=== PATIENT | female | born 1950 | race Caucasian/White ===

== ENCOUNTER → 2019-11-12 | Outpatient (CLI) | payer MEDICARE ==
[~2019-11-12] MED LIST: ALBU90OI INH; ASPI325EC PO; BUPR150T2 PO; CLON.2 PO; FLUSAL2505 IH
[2019-11-13 02:18] LABS: Stool Occult Bld Immuno 1 Negative (NEGATIVE)
== END ==
LOC: LAB 14:34 → LAB SHORT 14:34
PROVIDERS: Nurse Practitioner Family
DX: Z12.11 Encounter for screening for malignant neoplasm of colon (principal)
CPT/HCPCS: G0328

== ENCOUNTER → 2020-12-07 | Outpatient (CLI) | payer MEDICARE ==
[2020-12-08 10:51] LABS: Stool Occult Bld Immuno 1 Negative (NEGATIVE)
== END | disposition home or self-care (01) ==
LOC: LAB SHORT 11:00 → LAB 11:00
PROVIDERS: Nurse Practitioner Family
DX: Z12.11 Encounter for screening for malignant neoplasm of colon (principal)
CPT/HCPCS: G0328

== ENCOUNTER → 2021-06-03 | Outpatient (CLI) | payer MEDICARE ==
[2021-06-03 13:20] LABS: Protein, Urine Quantitative 5.5 mg/dL (0.0-11.9); Sodium, Urine 64 mmol/L (20-110)
[2021-06-03 15:22] LABS: Microalbumin, Urine Quant. <5.000 mg/L (0.000-20.000)
== END | disposition home or self-care (01) ==
LOC: LAB SHORT 09:00 → LAB FUT 06-01 12:20
PROVIDERS: Internal Medicine Nephrology
DX: N18.30 Chronic kidney disease, stage 3 unspecified (principal); D63.1 Anemia in chronic kidney disease; D50.9 Iron deficiency anemia, unspecified; N25.81 Secondary hyperparathyroidism of renal origin; E55.9 Vitamin D deficiency, unspecified; E78.00 Pure hypercholesterolemia, unspecified; D51.8 Other vitamin B12 deficiency anemias; D52.8 Other folate deficiency anemias; R76.9 Abnormal immunological finding in serum, unspecified; R94.5 Abnormal results of liver function studies; R94.6 Abnormal results of thyroid function studies
CPT/HCPCS: 82043; 82570; 84156; 84300

== ENCOUNTER 2022-01-18 10:03 | Emergency (ER) | payer MEDICARE ==
[~2022-01-18] VITALS: Ht 162.6 cm; Wt 79.4 kg
[2022-01-18] MEDS ORDERED: GABA300 PO (14:36)
[2022-01-18] MEDS ORDERED: IBUP800 PO (14:36)
[2022-01-18] MEDS ORDERED: Robaxin750 MG PO (14:36)
[2022-01-18] MEDS ORDERED: PRED20 PO (14:36)
[2022-01-19] MEDS ORDERED: GABA300 PO (09:20)
[2022-01-19] MEDS ORDERED: CYCL10 PO (09:47)
== END 2022-01-18 14:47 | disposition home or self-care (01) ==
LOC: ER 10:03
DX: M54.41 Lumbago with sciatica, right side (principal); I10 Essential (primary) hypertension; J45.909 Unspecified asthma, uncomplicated; Z79.82 Long term (current) use of aspirin; Z79.899 Other long term (current) drug therapy
CPT/HCPCS: 72100; 73502; 94640; 94664; A9270; J1885; J7512

== ENCOUNTER 2022-01-27 16:12 | Inpatient (IN) | payer MEDICARE ==
[~2022-01-27] VITALS: Ht 157.5 cm; Wt 82.0 kg
[~2022-01-27 16:12] MED LIST changes: +CYCL10 PO; +GABA300 PO; +IBUP800 PO; +PRED20 PO; +Robaxin750 MG PO
[2022-01-27] MEDS ORDERED: LISI20 PO (16:36)
[2022-01-27 16:49] LABS: BASOPHILS ABSOLUTE AUTO 0.03 K/mm3 (0.00-0.23); BASOPHILS PERCENT AUTO 0 % (0-2); EOSINOPHILS ABSOLUTE AUTO 0.02 K/mm3 (0.00-0.68); EOSINOPHILS PERCENT AUTO 0 % (0-6); Hematocrit 40.1 % (33.0-51.0); IMMATURE GRAN ABSOLUTE AUTO 0.15 K/mm3 (0.00-0.10); IMMATURE GRAN PERCENT AUTO 1 % (0-1); LYMPHOCYTES ABSOLUTE AUTO 1.34 K/mm3 (0.84-5.20); LYMPHOCYTES PERCENT AUTO 8 % (21-46); MONOCYTES PERCENT AUTO 8 % (4-13); Mean Corpuscular HGB 24.8 pg (26.0-34.0); Mean Corpuscular HGB Conc 32.4 g/dL (31.5-36.5); Mean Corpuscular Volume 76 fL (80-100); Mean Platelet Volume 8.9 fL (9.1-12.4); NEUTROPHILS ABSOLUTE AUTO 13.73 K/mm3 (1.96-9.15); NEUTROPHILS PERCENT AUTO 82 % (41-73); Platelet Count 338 K/mm3 (150-400); RDW Coefficient Variation 15.8 % (11.7-14.2); RDW Standard Deviation 42.2 fL (35.1-46.3); Red Blood Cell Count 5.25 M/mm3 (3.80-5.20); White Blood Cell Count 16.67 K/mm3 (4.00-11.30)
[2022-01-27 17:01] LABS: Source, Urine Clean Catch
[2022-01-27 17:17] LABS: Appearance, Urine Clear (Clear); Bilirubin, Urine Neg (Neg); Blood, Urine 1+ (Neg); Color, Urine Yellow (P-Yellow); Glucose Qualitative, Urine Neg (Neg); Ketones, Urine 1+ (Neg); Leukocyte Esterase, Urine Neg (Neg); Nitrite, Urine Neg (Neg); Protein, Urine 1+ (Neg); Specific Gravity, Urine 1.015 (1.003-1.022); Urobilinogen, Urine 1+ (Normal)
[2022-01-27 17:20] LABS: Albumin, Blood 3.4 g/dL (3.4-5.0); Albumin/Globulin Ratio 0.7 (0.8-1.8); Bilirubin, Total 0.7 mg/dL (0.1-1.0); Bun/Creatinine Ratio 34.6 (12.0-20.0); Calcium, Blood 9.4 mg/dL (8.5-10.1); Creatinine, Blood 1.91 mg/dL (0.40-1.00); Globulin, Blood 4.7 g/dL (2.2-4.0); Potassium, Blood 4.2 mmol/L (3.5-5.5); Total Protein, Blood 8.1 g/dL (6.4-8.2)
[2022-01-27 17:29] LABS: Bacteria Few /hpf; Hyaline Casts 0-2 /lpf (0-2); Squamous Epithelial Cells Few /hpf (Few)
[2022-01-27 19:50] LABS: Influenza A, PCR NEGATIVE (NEGATIVE); Influenza B, PCR NEGATIVE (NEGATIVE); Resp Syncytial Virus, PCR NEGATIVE (NEGATIVE); SARS-Cov-2 (COVID-19) PCR, MMC NEGATIVE (NEGATIVE)
[2022-01-28 05:28] LABS: U Amphetamine Screen Not Detected; U Barbituate Screen Not Detected; U Benzodiazapine Screen Not Detected; U Buprenorphine Screen Not Detected; U Cannabinoids Screen Not Detected; U Cocaine Screen Not Detected; U Methadone Screen Not Detected; U Methamphetamine Screen Not Detected; U Opiates Screen Not Detected; U Oxycodone Screen Not Detected; U Phencyclidine Screen Not Detected; U Propoxyphene Screen Not Detected
[2022-01-28 06:05] LABS: BASOPHILS ABSOLUTE AUTO 0.02 K/mm3 (0.00-0.23); BASOPHILS PERCENT AUTO 0 % (0-2); EOSINOPHILS ABSOLUTE AUTO 0.02 K/mm3 (0.00-0.68); EOSINOPHILS PERCENT AUTO 0 % (0-6); Hemoglobin 12.1 g/dL (11.5-16.0); IMMATURE GRAN PERCENT AUTO 1 % (0-1); LYMPHOCYTES ABSOLUTE AUTO 1.03 K/mm3 (0.84-5.20); LYMPHOCYTES PERCENT AUTO 7 % (21-46); MONOCYTES ABSOLUTE AUTO 1.06 K/mm3 (0.16-1.47); MONOCYTES PERCENT AUTO 8 % (4-13); Mean Corpuscular HGB 25.2 pg (26.0-34.0); Mean Corpuscular HGB Conc 32.7 g/dL (31.5-36.5); Mean Corpuscular Volume 77 fL (80-100); Mean Platelet Volume 9.3 fL (9.1-12.4); NEUTROPHILS ABSOLUTE AUTO 11.88 K/mm3 (1.96-9.15); NEUTROPHILS PERCENT AUTO 84 % (41-73); Platelet Count 310 K/mm3 (150-400); RDW Coefficient Variation 15.8 % (11.7-14.2); RDW Standard Deviation 42.4 fL (35.1-46.3); Red Blood Cell Count 4.81 M/mm3 (3.80-5.20); White Blood Cell Count 14.11 K/mm3 (4.00-11.30)
[2022-01-28 06:20] LABS: Albumin, Blood 3.1 g/dL (3.4-5.0); Albumin/Globulin Ratio 0.7 (0.8-1.8); Bilirubin, Total 0.7 mg/dL (0.1-1.0); Bun/Creatinine Ratio 44.5 (12.0-20.0); Creatinine, Blood 0.99 mg/dL (0.40-1.00); Globulin, Blood 4.7 g/dL (2.2-4.0); Potassium, Blood 4.5 mmol/L (3.5-5.5); Total Protein, Blood 7.8 g/dL (6.4-8.2)
[2022-01-28 10:10] LABS: Bun/Creatinine Ratio 38.7 (12.0-20.0); Calcium, Blood 9.4 mg/dL (8.5-10.1); Creatinine, Blood 0.96 mg/dL (0.40-1.00)
[2022-01-28 10:12] LABS: PO2 Arterial 87.1 mmHg (80-100); pH Blood Arterial 7.35 (7.35-7.45)
[2022-01-28 16:57] LABS: International Normalized Ratio 1.08; Prothrombin Time Results 11.3 Sec (9.7-11.5)
--- NOTE | 2022-01-28 17:32 | NUR ---
PT ARRIVED TO THE UNIT THIS AFTERNOON ALERT, CONFUSED, SHOUTING OUT. SEE ADMISSION ASSESSMENT FOR MORE. PT'S MENTATION WAXES AND WANES, SHE IS NOTED TO BE MINIMALLY RESPONSIVE WHEN LYING FLAT ON BACK TO SHOUTING OUT WHEN SITTING UP. BP WNL WHEN LYING FLAT, HTN NOTED WHEN SITTING UP. PINPOINT PUPILS NOTED WHEN LYING FLAT, 5MM BILAT PUPILS REACTIIVE TO LIGHT NOTED WHEN SITTING UP. SHE IS INTERMOITTENTLY RESPONSIVE TO VERBAL STIMULI AND OTHER TIMES TO PAINFUL STIMULI. DR YOU CALLED, HOUSE PLAYER SHARLA CALLED, THEN HOUSE PLAYER FROM ICU [facility] CALLED TO ASSESS THE PT, DR YOU ARRIVED TO BEDSIDE FOR ASSESSMENT. LUMBAR PUNCTURE IS INPROGRESS NOW. PT PLACED INTO DROPLET ISOLATION. PT'S FMAILY HAS BEEN UPDATED, CODE STATUS REMAINS FULL CODE. PT WITH COARSE TO DIM LUNG SOUNDS NOTED T/O, WITH WET CONGESTED NONPRODUCTIVE COUGH NOTED. PT'S ADMISSION WAS NOT FULLY COMPLETE PT WITH AMS
[2022-01-28 18:35] LABS: Glucose, CSF 100 mg/dL (40-70)
[2022-01-28 19:43] LABS: Cryptococcus Neoformans/Gattii Not Detected (NOT DETECT); Enterovirus Not Detected (NOT DETECT); Escherichia Coli K1 Not Detected (NOT DETECT); Haemophilus Influenza Not Detected (NOT DETECT); Herpes Simplex Virus 1 Not Detected (NOT DETECT); Herpes Simplex Virus 2 Not Detected (NOT DETECT); Human Herpesvirus 6 Not Detected (NOT DETECT); Human Parechovirus Not Detected (NOT DETECT); Listeria Monocytogenes Not Detected (NOT DETECT); Neisseria Meningitidis Not Detected (NOT DETECT); Streptococcus Agalactiae Not Detected (NOT DETECT); Streptococcus Pneumoniae Not Detected (NOT DETECT); Varicella Zoster Virus Not Detected (NOT DETECT)
[2022-01-28 19:44] LABS: Appearance, CSF Clear (Clear); Color, CSF No Color (No Color); RBC Count, CSF 72 /mm3 (0-0); WBC Count, CSF 2 /mm3 (0-5)
[2022-01-29 00:28] LABS: PCO2 Arterial 47.2 mmHg (35-45)
[2022-01-29 03:21] LABS: Base Excess Venous -2.7 mmol/L; Bicarbonate Venous 22.2 mmol/L (24.0-30.0); PCO2 Venous 35.1 mmHg (38-42); pH Blood Venous 7.41 (7.34-7.37)
[2022-01-29 05:32] LABS: BASOPHILS ABSOLUTE AUTO 0.02 K/mm3 (0.00-0.23); BASOPHILS PERCENT AUTO 0 % (0-2); EOSINOPHILS PERCENT AUTO 0 % (0-6); Hematocrit 35.9 % (33.0-51.0); Hemoglobin 11.4 g/dL (11.5-16.0); IMMATURE GRAN ABSOLUTE AUTO 0.05 K/mm3 (0.00-0.10); IMMATURE GRAN PERCENT AUTO 1 % (0-1); LYMPHOCYTES ABSOLUTE AUTO 1.01 K/mm3 (0.84-5.20); LYMPHOCYTES PERCENT AUTO 10 % (21-46); MONOCYTES ABSOLUTE AUTO 1.19 K/mm3 (0.16-1.47); MONOCYTES PERCENT AUTO 11 % (4-13); Mean Corpuscular HGB 24.8 pg (26.0-34.0); Mean Corpuscular HGB Conc 31.8 g/dL (31.5-36.5); Mean Corpuscular Volume 78 fL (80-100); Mean Platelet Volume 8.8 fL (9.1-12.4); NEUTROPHILS ABSOLUTE AUTO 8.22 K/mm3 (1.96-9.15); NEUTROPHILS PERCENT AUTO 78 % (41-73); Platelet Count 322 K/mm3 (150-400); RDW Coefficient Variation 16.1 % (11.7-14.2); RDW Standard Deviation 44.6 fL (35.1-46.3); Red Blood Cell Count 4.59 M/mm3 (3.80-5.20); White Blood Cell Count 10.49 K/mm3 (4.00-11.30)
[2022-01-29 05:48] LABS: Bun/Creatinine Ratio 37.8 (12.0-20.0); Calcium, Blood 9.3 mg/dL (8.5-10.1); Creatinine, Blood 0.74 mg/dL (0.40-1.00); Potassium, Blood 4.2 mmol/L (3.5-5.5)
--- NOTE | 2022-01-29 06:26 | NUR ---
PT SEEMS TO RESPOND APPROPRIATLEY AT TIMES BUT FOR THE MOST PART SHE WAS OBTUNDED OR HALLUCINATING AND DELUSIONAL, MUMBLING INCOHERENTLY AND COMBATIVE AT TIMES PLACED ON BIPAP D/T PCO2 47, PH 7.30, HCO3 WAS 22, ST 100-140'S, TMAX WAS 99.8, RR ELEVATED (AT IT'S HIGHEST IT WAS 44), LABORED AND IRREGULAR, NASAL TRUMPET PLACED WITHOUT DIFFICULTY BECAUSE PTS TONGUE WAS OBSTRUCTING AND NOT ABLE TO CLEAR ORAL SECRETIONS, PT WAS GIVEN ONE DOSE OF PRN ATIVAN, ONE DOSE OF LOPRESSOR AND A DOSE OF HYDRALAZINE, B/P WAS ELEVATED OR JUST WITHIN TOP RANGE THROUGHOUT THE SHIFT, UO WAS LESS THAN 1000CC FOR THE SHIFT AND NO BM, I WILL ATTEMPT TO CALL DAUGHTER WITH AN UPDATE BEFORE I LEAVE THIS AM
[2022-01-29] MEDS ORDERED: LATANOPROST2.5 M3 BOTHEYES (16:39)
[2022-01-29] MEDS ORDERED: CYCL10 PO (16:40)
[2022-01-29] MEDS ORDERED: NEURONTIN300 MG PO (16:40)
[2022-01-29] MEDS ORDERED: CELEXA10 MG PO (16:42)
[2022-01-29] MEDS ORDERED: LISI20 PO (16:42)
[2022-01-29] MEDS ORDERED: METFORMIN HCL500 M2 PO (16:42)
[2022-01-29] MEDS ORDERED: PANTOPRAZOLE SO40 M2 PO (16:43)
[2022-01-29] MEDS ORDERED: FLUTICASONE-SA1 EAC9 INH (16:43)
[2022-01-29] MEDS ORDERED: HYDROXYZINE PAM25 MG PO (16:44)
--- NOTE | 2022-01-29 17:40 | NUR ---
PT IS NOW ALERT, ORIENTED X2. SHE AWAKENS EASILY TO VERBAL STIMULI. VSS, SHE DID REQUIRE HYDRALAZINE TODAY FOR HTN. SHE DID BECOME FEBRILE THIS AFTERNOON, SHE WAS TREATED WITH TYLENOL AND FEVER RESOLVED WELL, ROOM TEMP TURNED DOWN WELL. PT HAS HAD BREAHTING TREATMENTS AND CPT T/O THE DAY WHICH SHE HAS ALSO TOLERATED WELL. SHE HAS A STRONG PRODUCTIVE COUGH, SHE IS ABLE TO SUCTION SELF. PT IS NOW ON ROOM AIR WITH SPOW 99% WHILE AWAKE AND SLEEPING. PT DOES REPORT SCIATIC PAIN TO LT HIP AND LEG WHICH SHE HAS HAD FOR A FEW WEEKS. PT HAS SPOKEN WITH HER FAMILY, FAMILY IS ALSO UPDATED. PT ASKING QUESTIONS ABOUT WHAT HAPPENED AND HOW LONG SHE HAS BEEN HERE, SHE DOES SEEM TO REMEMBER THE EDUCATION AND ORIENTATION THAT WAS PROVIDED TO HER. ORAL CARE PERFORMED, CHAPSTICK APPLIED.
[2022-01-30 05:57] LABS: BASOPHILS ABSOLUTE AUTO 0.03 K/mm3 (0.00-0.23); BASOPHILS PERCENT AUTO 0 % (0-2); EOSINOPHILS ABSOLUTE AUTO 0.05 K/mm3 (0.00-0.68); EOSINOPHILS PERCENT AUTO 1 % (0-6); Hematocrit 31.6 % (33.0-51.0); Hemoglobin 10.4 g/dL (11.5-16.0); IMMATURE GRAN ABSOLUTE AUTO 0.02 K/mm3 (0.00-0.10); IMMATURE GRAN PERCENT AUTO 0 % (0-1); LYMPHOCYTES ABSOLUTE AUTO 1.22 K/mm3 (0.84-5.20); LYMPHOCYTES PERCENT AUTO 14 % (21-46); MONOCYTES ABSOLUTE AUTO 0.94 K/mm3 (0.16-1.47); MONOCYTES PERCENT AUTO 10 % (4-13); Mean Corpuscular HGB 25.1 pg (26.0-34.0); Mean Corpuscular HGB Conc 32.9 g/dL (31.5-36.5); Mean Corpuscular Volume 76 fL (80-100); Mean Platelet Volume 8.8 fL (9.1-12.4); NEUTROPHILS ABSOLUTE AUTO 6.76 K/mm3 (1.96-9.15); NEUTROPHILS PERCENT AUTO 75 % (41-73); Platelet Count 287 K/mm3 (150-400); RDW Coefficient Variation 16.4 % (11.7-14.2); RDW Standard Deviation 44.5 fL (35.1-46.3); Red Blood Cell Count 4.14 M/mm3 (3.80-5.20); White Blood Cell Count 9.02 K/mm3 (4.00-11.30)
--- NOTE | 2022-01-30 05:59 | NUR ---
PT RESTED WELL OVERNIGHT, RECIEVEB NEB TX AND CPT ORDERED AND MAINTAINED SATS ON RA, D5 1/2NS AT 100, UO ADEQUATE AND HTN TREATED 2 TIMES WITH PRN'S
[2022-01-30 06:12] LABS: Albumin, Blood 2.5 g/dL (3.4-5.0); Albumin/Globulin Ratio 0.6 (0.8-1.8); Bilirubin, Total 0.5 mg/dL (0.1-1.0); Bun/Creatinine Ratio 22.6 (12.0-20.0); Calcium, Blood 8.3 mg/dL (8.5-10.1); Creatinine, Blood 0.75 mg/dL (0.40-1.00); Globulin, Blood 4.2 g/dL (2.2-4.0); Magnesium, Blood 1.7 mg/dL (1.6-2.4); Potassium, Blood 3.4 mmol/L (3.5-5.5); Total Protein, Blood 6.7 g/dL (6.4-8.2)
--- NOTE | 2022-01-30 16:24 | NUR ---
PT SUMMARY: PT WAS MORE AT BASELINE TODAY, WAS MAKING PHONE CALLS. ANSWERS QUESTIONS APPROPRIATELY. VITALS STABLE HRR SR/ST 90-120'S, HAD SMALL RUNS OF SVT PROVIDER IS AWARE TRANSITIONED TO MEDICAL STATUS TO KEEP ON TELE. SATS ABOVE 95% ON RA, AFEBRILE. PT KEEPS C/O PAIN ON RIGHT LEG MOSTLY WHEN MVOED/REPOSTIONED OR SITTING UP, TYLENOL GIVEN ONCE FOR THE SHIFT. 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 PT ALSO HAS ARTHRITIS NOTED ON HIP XRAY. PT WITH POOR APPETITE LIKES TO DRINK ICE WATER MORE THAN EATING. PT REQUESTED TO KEEP CATHETER IN PLACE UNTIL TOMORROW WHEN SHE CAN WORK WITH PT/OT SO SHE CAN GET UP AND USE THE BATHROOM. NO OTHER ISSUES ENCOUNTERED FOR THE SHIFT, PT IN BED MOST OF THE SHIFT. CALL LIGHTS IN REACH WILL MONITOR
--- NOTE | 2022-01-31 04:35 | NUR ---
PT HAD ONE SHORT EPISODE OF DESATURATION AT 0400 D/T TONGUE OBSTRUCTING AIRWAY WHILE ASLEEP, PT REPOSITIONED AND IT RESOLVED, PT NEEDED TO BE REORIENTED AT THAT TIME BUT IT WAS EASILY ACCOMPLISHED, OTHERWISE STABLE ON RA THROUGHOUT THE SHIFT AND APPROPRIATE NEUROLOGICALLY, B/P ELEVATED AND TREATED WITH PRN HYDRALAZINE ONE TIME AT 0400 WHICH COINCIDED WITH THE CONFUSION, TYLENOL TIMES 1 FOR BLE PAIN AND VISIBLE SPASMS, PT TOLERATED THE BED ROTHMAN AND HAD A LARGE SOFT STOOL, SHE ALSO MANAGED TO DRINK AN ENTIRE ENSURE CLEAR, CUT WITH MIMA MIST 50/50, AFEBRILE, ADEQUATE UO
[2022-01-31 16:05] LABS: Bun/Creatinine Ratio 17.1 (12.0-20.0); Calcium, Blood 8.9 mg/dL (8.5-10.1); Creatinine, Blood 0.82 mg/dL (0.40-1.00); Potassium, Blood 3.9 mmol/L (3.5-5.5)
--- NOTE | 2022-01-31 18:05 | NUR ---
SHIFT SUMMARY PT A&0X4, Q2 TURN, HAS BEEN IN BED ALL SHIFT, CALLS APPROPRIATELY, AND SP02 SUSTAINED >90% RA. PT'S HR INCREASES WHEN IN PAIN AND HAVING MUSCLE SPASMS, AND WAS NOT ABLE TO COMPLETE WORKING WITH OT. HER HR WENT UP TO THE 130'S AND HER SPASMS INCREASED. PUT IN VALIUM TO HELP MONITOR THE SPASMS AND SHE WAS MEDICATED TWICE W/ 2.5 MG. THE VALIUM HELPED ELIMINATE THE PAIN FOR A FEW HOURS. WHEN PAIN IS MANAGED, PT IS SR 90'S ON TELE. SHE DENIES ANY SOB, ANGINA, AND N/V/D. HE COMPLAINED ONCE OF A HEADACHE DUE TO NOT TAKING HER ANTIDEPRESSENTS AND WAS MEDICATED WITH TYLONAL, WHICH HELPED HER PAIN. DR. UNGER WANTS TO HOLD HER ANTIDEPRESSENT STILL. BED ALARM IS ON, BED IS IN LOW, AND THERE IS THREE SIDE RAILS UP. WILL CONTINUE TO MONITOR UNTIL SHIFT REPORT IS GIVEN TO HE ONCOMING SHIFT RN. SEE NOTES FOR ANY UPDATES.
--- NOTE | 2022-01-31 22:15 | NUR ---
ASSUMED PT CARE FORM ADELINE MATOS ON . A&OX4. ABLE TO MAKE NEEDS KNOWN. REPORTS ADIQUATE PAIN CONTROL IN LEGS ARE THIS TIME. HR SR IN 90'S. PT DENIES ANY FEELINGS OF SOB OR CHEST PAIN. RESPIRATIONS ARE EVEN AND UNLABORED WITH EXPIRATORY WHEEZING THROUGHOUT IN THE LUNGS. DENIES NEEDS AT THIS TIME. CALL LIGHT IN REACH.
[2022-02-01 06:28] LABS: Albumin, Blood 2.8 g/dL (3.4-5.0); Anion Gap 7 mmol/L (6-16); Blood Urea Nitrogen 12 mg/dL (8-24); Bun/Creatinine Ratio 16.7 (12.0-20.0); CO2, Blood 23 mmol/L (21-32); Calcium, Blood 8.6 mg/dL (8.5-10.1); Chloride, Blood 108 mmol/L (98-108); Creatinine, Blood 0.72 mg/dL (0.40-1.00); Glomerular Filtration Rate 90 (60-); Glucose, Blood 128 mg/dL (70-99); Phosphorus, Blood 3.5 mg/dL (2.5-4.9); Potassium, Blood 3.9 mmol/L (3.5-5.5); Sodium, Blood 138 mmol/L (136-145)
--- NOTE | 2022-02-01 06:48 | NUR ---
SHIFT SUMMARY RECEIVED REPORT FROM GAY JALLOH RN- PT TRANSFERRING FROM PCU- PT A&O X 4, MEDICATED ONCE FOR LEG/HIP SPASMS PAIN- FLUSHED POWERGLIDE IN RIGHT UPPER ARM- FLUSHED BUT NO BLOOD RETURN- SHARP CATH IN PLACE- URINE = CLEAR YELLOW- INFUSED CLEOCIN X1 ON SHIFT- PT HAD LARGE BM ON BEDPAN -BED LOW POSITION, CALL LIGHT WITH IN REACH- ASSISTED PT BY REPOSITIONING PT T/O NIGHT
--- NOTE | 2022-02-01 16:33 | NUR ---
SHIFT SUMMARY- PT C/O OF PAIN IN LOWER LEGS AND BACK THROUGHOUT SHIFT, SEE EMAR FOR TREATMENT. MEDICATIONS GIVEN PRIOR TO PT/OT VISIT, SEE EMAR. PT ON RA. VSS. A&O X4. PT DETERMINED TO PROGRESS TO SNF. APPETITE GOOD. NO ACUTE CHANGES DURING THIS SHIFT. WILL CONTINUE TO MONITOR. CALL LIGHT IN REACH, SIDE RAILS UP X3 FOR SAFETY, BED ALARM ON.
--- NOTE | 2022-02-02 06:24 | NUR ---
SHIFT SUMMARY PT A&O X 4- PT REPORTS PAIN IN RIGHT HIP AND BILAT LEGS - PT REPORTS PAIN TOLERABLE- CALL TO DR. STANFORD FOR MELATONIN PER PT REQUEST- SHARP DRAINING CLEAR YELLOW URINE- REMOVED IV RIGHT WRIST D/T LEAKING- MIDLINE FLUSHES WITH NO BLOOD RETURN- PLAN IS FOR DISCHARGE TO [facility] ONCE OFF [facility]-CALL LIGHT WITHIN REACH, BED LOW POSITION
[2022-02-02] MEDS ORDERED: MELATONIN5 M1 PO (07:58)
[2022-02-02] MEDS ORDERED: Acetaminophen325 M1 PO (07:58)
[2022-02-02] MEDS ORDERED: METO25ER PO (07:59)
[2022-02-02] MEDS ORDERED: DIAZ5 PO (08:00)
--- NOTE | 2022-02-02 17:45 | NUR ---
SHIFT SUMMARY- PT PLEASANT AND COMPLIANT WITH ALL CARE. C/O OF LEG AND LOWER BACK PAIN, MEDICATED SEE EMAR. ON RA. A&OX4. SHARP DRAINING CLEAR YELLOW URINE. NO ACUTE CHANGES THIS SHIFT. WILL CONITUE TO MONITOR. CALL LIGHT IN REACH, BED ALARM ON, AND SIDE RAILS UP X3 FOR SAFETY.
--- NOTE | 2022-02-03 06:40 | NUR ---
* LATE ENRTY- CALL FROM TELE AT [address] ELEVATION- PT DENIES PAIN, SOB - PT HAD INCREASED CONFUSION- CALL DR. COLON RE: ELEVATION AND AMS- ORDER FOR EKG AND TROPONIN- REVIEWED EKG AND REPORTED COMPARABLE- TROPONIN RESULTS NOT DONE YET
--- NOTE | 2022-02-03 06:43 | NUR ---
SHIFT SUMMARY PT A&O X4 - PT HAD INCREASED RIGHT LEG SPASMS AT BEGINNING OF SHIFT - GAVE SHIFT SUMMARY PT A&O X4 - PT HAD INCREASED RIGHT LEG SPASMS AT BEGINNING OF SHIFT - GAVE VALIUM AND TYLENOL PER ORDER- PT SHARP CATH IN PLACE DRAINING CLEAR YELLOW URINE- BED LOW POSITION, PT HAD SIGNS OF CONFUSION AFTER RECEIVING THE MELATONIN AND VALIUM-ABLE TO REORIENT PT AFTER A FEW MINUTES OF REMINDING HER WHERE SHE WAS WHY SHE WAS HERE WILL REPORT TO DAY SHIFT - TELE NOTIFIED OF ELEVATED ST - PT DENIED CP OR SOB- NEW ORDERS- PT CONTINUES TO HAVE INCREASED CONFUSION- NOTIFIED- NEW ORDERS CALL LIGHT WITHIN REACH- PLAN IS FOR DISCHARGE TO [facility] MONDAY OF MONDAY
--- NOTE | 2022-02-03 12:36 | NUR ---
RECHECK ON BP 1200 142/68.
--- NOTE | 2022-02-03 18:07 | NUR ---
PT QUITE PLEASANT TODAY. PAIN MANAGED WITH THE TYLENOL TODAY. IS PRESENTLY AT MRI OF BACK AND LEGS. PT TALKED ABOUT HER TRIPS AND WHAT SHE AND HER LADY FRIENDS DO REGULARLY, EATIING OUT, ETC. VERY PLEASANT DISCUSSIONS. PT HOPING TO FIND RESULTS OF PAIN. MOSTLY UNABLE TO SIT UP OR EEN TO BEGIN TO GET UP TODAY. BED IN LOW POSITION, CALL LITE IN REACH. CALLS APPROP
--- NOTE | 2022-02-04 03:26 | NUR ---
SHIFT SUMMARY NO OVERNIGHT EVENTS. LEG SPASMS APPEARED TO BE BETTER, PT SLEPT MOST OF NIGHT. PAIN TOLERABLE, NO PRN'S REQUESTED. REMAINS IN BED, EGG CRATE IN PLACE, ABLE TO SHIFT WEIGHT. SHARP CATHETER IN PLACE, DRAINING WELL. NSR HR 80-100 ON TELE. CALL LIGHT IN REACH, ABLE TO MAKE NEEDS KNOWN.
[2022-02-04 14:40] LABS: SARS-Cov-2 (COVID-19) PCR, MMC NEGATIVE (NEGATIVE)
--- NOTE | 2022-02-04 15:37 | NUR ---
TELEPHONE REPORT GIVEN TO VAN MATOS AT [facility]. PATIENT DISCHARGED TO [facility] FOR REHAB VIA AMBULANCE. CORY POWERGLIDE IV REMOVED WITHOUT INCIDENT; SUBSTANTIAL BRUISING AT INSERTION SITE, WHICH PT SAYS LOOKS BETTER THAN IT DID A COUPLE DAYS AGO. TELEMETRY REMOVED. PT SENT WITH SHARP CATHETER. DECLINED OFFERED VALIUM PRIOR TO D/C. OFF UNIT AT 1534. NO PERSONAL BELONGINGS FOUND LEFT BEHIND IN ROOM.
== END 2022-02-04 15:19 | DRG 92 ==
LOC: ER 16:12 → MEDS 19:25 → ER 19:25 → ERHOLD 01-28 01:23 → PCU 01-28 13:22 → MEDS 01-31 22:53 → ENPENDDIS 02-02 17:41 → MEDS 02-04 15:19
PROVIDERS: Emergency Medicine; Family Medicine; Internal Medicine; Student in an Organized Health Care Education/Training Program; ADMIT Internal Medicine
PROC: 009U3ZX Drainage of Spinal Canal, Percutaneous Approach, Diagnostic (ICD-10-PCS; principal; 2022-01-28)
PROC: 5A09357 Assistance with Respiratory Ventilation, Less than 24 Consecutive Hours, Continuous Positive Airway Pressure (ICD-10-PCS; 2022-01-29)
DX: G92.8 Other toxic encephalopathy (principal); B19.10 Unspecified viral hepatitis B without hepatic coma; N17.9 Acute kidney failure, unspecified; J98.19 Other pulmonary collapse; I10 Essential (primary) hypertension; J45.909 Unspecified asthma, uncomplicated; M53.3 Sacrococcygeal disorders, not elsewhere classified; T43.225A Adverse effect of selective serotonin reuptake inhibitors, initial encounter; T48.1X5A Adverse effect of skeletal muscle relaxants [neuromuscular blocking agents], initial encounter; E86.0 Dehydration; R00.0 Tachycardia, unspecified; M62.831 Muscle spasm of calf; W18.30XA Fall on same level, unspecified, initial encounter; Z20.822 Contact with and (suspected) exposure to COVID-19; Z79.811 Long term (current) use of aromatase inhibitors; Z79.82 Long term (current) use of aspirin; Z79.52 Long term (current) use of systemic steroids; Z79.51 Long term (current) use of inhaled steroids; Z87.81 Personal history of (healed) traumatic fracture; Z98.51 Tubal ligation status; Z90.49 Acquired absence of other specified parts of digestive tract; Z98.890 Other specified postprocedural states
CPT/HCPCS: 0241U; 36415; 36600; 51701; 51702; 70450; 71045; 71260; 72158; 73522; 76770; 80048; 80053; 80069; 81001; 82140; 82550; 82803; 82945; 82947; 83605; 83735; 83880; 84157; 84443; 84484; 85025; 85610; 85651; 86140; 87070; 87205; 87483; 89051; 93005; 93010; 94640; 94660; 94664; 94667; 94668; 94760; 94762; 96374-59; 96375-59; 96376-59; 97110; 97162; 97166; 97530; 99285-25; A9270; A9579; C1751; J0360; J1630; J1650; J2060; J3010; J3360; J7030; J7042; J7050; Q9967; U0004

== ENCOUNTER 2022-02-16 01:20 | Observation (INO) | payer MEDICARE ==
[~2022-02-16] VITALS: Ht 157.5 cm; Wt 81.7 kg
[~2022-02-16 01:20] MED LIST changes: +Acetaminophen325 M1 PO; +CELEXA10 MG PO; +DIAZ5 PO; +FLUTICASONE-SA1 EAC9 INH; +HYDROXYZINE PAM25 MG PO; +LATANOPROST2.5 M3 BOTHEYES; +LISI20 PO; +MELATONIN5 M1 PO; +METFORMIN HCL500 M2 PO; +METO25ER PO; +NEURONTIN300 MG PO; +PANTOPRAZOLE SO40 M2 PO
[2022-02-16 01:55] LABS: Albumin, Blood 3.1 g/dL (3.4-5.0); Albumin/Globulin Ratio 0.6 (0.8-1.8); Bilirubin, Total 0.5 mg/dL (0.1-1.0); Bun/Creatinine Ratio 16.3 (12.0-20.0); Calcium, Blood 9.8 mg/dL (8.5-10.1); Creatinine, Blood 2.58 mg/dL (0.40-1.00); Globulin, Blood 5.2 g/dL (2.2-4.0); Potassium, Blood 5.5 mmol/L (3.5-5.5); Total Protein, Blood 8.3 g/dL (6.4-8.2)
[2022-02-16 02:08] LABS: BASOPHILS ABSOLUTE AUTO 0.03 K/mm3 (0.00-0.23); BASOPHILS PERCENT AUTO 0 % (0-2); EOSINOPHILS ABSOLUTE AUTO 0.02 K/mm3 (0.00-0.68); EOSINOPHILS PERCENT AUTO 0 % (0-6); Hematocrit 41.2 % (33.0-51.0); Hemoglobin 13.3 g/dL (11.5-16.0); IMMATURE GRAN ABSOLUTE AUTO 0.05 K/mm3 (0.00-0.10); IMMATURE GRAN PERCENT AUTO 1 % (0-1); LYMPHOCYTES ABSOLUTE AUTO 1.23 K/mm3 (0.84-5.20); LYMPHOCYTES PERCENT AUTO 14 % (21-46); MONOCYTES ABSOLUTE AUTO 0.69 K/mm3 (0.16-1.47); MONOCYTES PERCENT AUTO 8 % (4-13); Mean Corpuscular HGB 25.6 pg (26.0-34.0); Mean Corpuscular HGB Conc 32.3 g/dL (31.5-36.5); Mean Corpuscular Volume 79 fL (80-100); Mean Platelet Volume 9.3 fL (9.1-12.4); NEUTROPHILS PERCENT AUTO 77 % (41-73); Platelet Count 318 K/mm3 (150-400); RDW Standard Deviation 48.2 fL (35.1-46.3); Red Blood Cell Count 5.19 M/mm3 (3.80-5.20); White Blood Cell Count 8.92 K/mm3 (4.00-11.30)
[2022-02-16 03:06] LABS: Source, Urine Clean Catch
[2022-02-16 03:26] LABS: Appearance, Urine Cloudy (Clear); Bilirubin, Urine Neg (Neg); Blood, Urine 1+ (Neg); Glucose Qualitative, Urine Neg (Neg); Ketones, Urine 1+ (Neg); Leukocyte Esterase, Urine 3+ (Neg); Nitrite, Urine Neg (Neg); Protein, Urine Neg (Neg); Urobilinogen, Urine NORM (Normal)
[2022-02-16 03:32] LABS: Color, Urine Pale Yellow (P-Yellow)
[2022-02-16 03:33] LABS: Red Blood Cells, Urine 0-2 /hpf (0-2); Squamous Epithelial Cells Rare /hpf (Few); White Blood Cells, Urine 50-100 /hpf (0-5)
[2022-02-16 03:34] LABS: Bacteria Mod /hpf
[2022-02-16 05:19] LABS: Bun/Creatinine Ratio 16.5 (12.0-20.0); Calcium, Blood 9.7 mg/dL (8.5-10.1); Creatinine, Blood 2.49 mg/dL (0.40-1.00); Potassium, Blood 5.2 mmol/L (3.5-5.5)
--- NOTE | 2022-02-16 17:26 | NUR ---
SHIFT SUMMARY- PT VSS. PT PLEASANT, COORPERATIVE. A&OX3. NS RUNNING 125HR. ON RA. C/O PAIN, TREATED PER EMAR. PAIN MANAGEMENT CAUSED HALLUICATIONS, REMOVED AND NOTIFIED DR. TRINIDAD AT BEDSIDE. WILL CONTINUE TO MONITOR. CALL LIGHT IN REACH, SIDE RAILS UP FOR SAFETY, AND BED ALARM ON.
--- NOTE | 2022-02-17 05:36 | NUR ---
SHIFT SUMMARY PT A&O X 3 AT BEGINNING OF SHIFT- PT RESTLESS T/O NIGHT AND BEGAN TO HALLUCINATE - PT CALLED MANY TIMES TO BE REPOSITIONED - PT WOULD YELL OUT OR MOAN ONCE IN A WHILE- PT UNABLE TO TELL THIS RN WHAT SHE WAS YELLING ABOUT- PT ASKED STOCK PLAN ADMINISTRATOR IF THERE WAS GUN IN THE ROOM OVER ON THE WALL- PT WAS REORIENTED TO HOSPITAL- PT CALLED TO TALK TO THIS RN AT 515 ABOUT BEING CONSTIPATED- PT REPORTED THAT IT HAS BEEN 11 DAYS SINCE BM- OFFERED MILK OF MAG AT THAT TIME- PT REFUSED AND REQUESTED TO HAVE AFTER BREAKFAST- IV INFUSING WITHOUT PROBLEMS, SHARP CATH DRAINING YELLOW URINE- BED LOW POSITION, CALL LIGHT WITHIN REACH, BED ALARM IN PLACE
[2022-02-17 06:25] LABS: BASOPHILS ABSOLUTE AUTO 0.06 K/mm3 (0.00-0.23); BASOPHILS PERCENT AUTO 1 % (0-2); EOSINOPHILS ABSOLUTE AUTO 0.03 K/mm3 (0.00-0.68); EOSINOPHILS PERCENT AUTO 0 % (0-6); Hematocrit 39.2 % (33.0-51.0); Hemoglobin 12.5 g/dL (11.5-16.0); IMMATURE GRAN ABSOLUTE AUTO 0.04 K/mm3 (0.00-0.10); IMMATURE GRAN PERCENT AUTO 0 % (0-1); LYMPHOCYTES ABSOLUTE AUTO 1.13 K/mm3 (0.84-5.20); LYMPHOCYTES PERCENT AUTO 12 % (21-46); MONOCYTES ABSOLUTE AUTO 0.74 K/mm3 (0.16-1.47); MONOCYTES PERCENT AUTO 8 % (4-13); Mean Corpuscular HGB 25.4 pg (26.0-34.0); Mean Corpuscular HGB Conc 31.9 g/dL (31.5-36.5); Mean Corpuscular Volume 80 fL (80-100); Mean Platelet Volume 9.1 fL (9.1-12.4); NEUTROPHILS ABSOLUTE AUTO 7.41 K/mm3 (1.96-9.15); NEUTROPHILS PERCENT AUTO 79 % (41-73); Platelet Count 304 K/mm3 (150-400); RDW Coefficient Variation 17.2 % (11.7-14.2); RDW Standard Deviation 48.5 fL (35.1-46.3); Red Blood Cell Count 4.93 M/mm3 (3.80-5.20); White Blood Cell Count 9.41 K/mm3 (4.00-11.30)
[2022-02-17 06:53] LABS: C-REACTIVE PROTEIN, EXT RANGE 0.567 mg/dL (0.000-0.300); Magnesium, Blood 1.5 mg/dL (1.6-2.4)
[2022-02-17 07:03] LABS: Albumin/Globulin Ratio 0.6 (0.8-1.8); Bilirubin, Total 0.4 mg/dL (0.1-1.0); Bun/Creatinine Ratio 18.5 (12.0-20.0); Calcium, Blood 9.2 mg/dL (8.5-10.1); Creatinine, Blood 1.78 mg/dL (0.40-1.00); Globulin, Blood 4.7 g/dL (2.2-4.0); Potassium, Blood 4.4 mmol/L (3.5-5.5); Thyroid Stimulating Hormone 0.442 uIU/mL (0.360-4.800); Total Protein, Blood 7.7 g/dL (6.4-8.2)
--- NOTE | 2022-02-17 08:00 | NUR ---
pt laying in bed awake a/o3, pleasant and cooperative with care, follows commands well, denies pain at this time, lungs are clear t/o, resp even and unlabored, no cough noted, hrr, no edema noted, ppp+1, cap refill <3sec, vs stable, afebrile, iv site to rfa site is clear and patent, btx4, abd flat soft nontender, voids without diff, skin c/w/d, maew, gigi, call light in reach.
[2022-02-17 10:20] LABS: International Normalized Ratio 1.14; Prothrombin Time Results 11.9 Sec (9.7-11.5)
[2022-02-17 12:03] LABS: Alpha Feto Protein, Tumor Mkr 2.6 ng/mL (0.0-8.0); Cancer Antigen 125 6.9 U/mL (1.5-35.0); Cancer Antigen 19-9 6.7 U/mL (2.0-37.0); Carcinoembryonic Antigen 1.1 ng/mL (0.0-3.0)
--- NOTE | 2022-02-17 18:08 | NUR ---
pt has had some confused conversations today, went to radiology for bone marrow biopsy, wanted mom for bm, no other changes this shift, call light in reach.
--- NOTE | 2022-02-18 03:39 | NUR ---
SHIFT SUMMARY NO OVERNIGHT EVENTS. PT REMAINS CONFUSED, ORIENTED TO SELF, PLACE, AND SITUATION. ON/OFF MENTATION, FORGETFUL. PT DOES USE CALL LIGHT APPROPERIATLY. PT REMAINED IN BED THROUGHOUT SHIFT, BED ALARM ON. SHARP CATHETER IN PLACE, DRAINING CLEAR YELLOW URINE. BONE BIOPSY SENDING FOR FURTHER PLAN OF CARE. PT AWARE. FREQUENT ROUNDING TO ASSESS NEEDS OF PT.
[2022-02-18 06:33] LABS: Hematocrit 41.2 % (33.0-51.0); Hemoglobin 13.5 g/dL (11.5-16.0); Mean Corpuscular HGB 25.5 pg (26.0-34.0); Mean Corpuscular HGB Conc 32.8 g/dL (31.5-36.5); Mean Corpuscular Volume 78 fL (80-100); Platelet Count 317 K/mm3 (150-400); RDW Coefficient Variation 17.2 % (11.7-14.2); RDW Standard Deviation 47.6 fL (35.1-46.3); Red Blood Cell Count 5.29 M/mm3 (3.80-5.20)
[2022-02-18 06:49] LABS: Albumin, Blood 3.1 g/dL (3.4-5.0); Albumin/Globulin Ratio 0.7 (0.8-1.8); Bilirubin, Total 0.3 mg/dL (0.1-1.0); Bun/Creatinine Ratio 19.7 (12.0-20.0); Calcium, Blood 9.4 mg/dL (8.5-10.1); Creatinine, Blood 1.22 mg/dL (0.40-1.00); Globulin, Blood 4.7 g/dL (2.2-4.0); Potassium, Blood 3.8 mmol/L (3.5-5.5); Total Protein, Blood 7.8 g/dL (6.4-8.2)
--- NOTE | 2022-02-18 19:19 | NUR ---
SHIFT SUMMARY PT RESTING QUIETLY AT START OF SHIFT. WOKE EASILY FOR CARE. PT REPOSITIONED FOR BREAKFAST. ABLE TO SIT UP TO EAT AND TAKE PO MEDS. DR MILES IN TO SEE PT; NEW ORDERS PLACED AND DISCUSSED WITH PT. P/T EVAL DONE; PT ABLE TO GET UP TO BSC WITH 1P ASSIST USING FWW AND GB. PT WAS EXHAUSTED AFTER GETTING UP, BUT DID WELL. MEDICATED X1 THIS EVENING FOR C/O PAIN. REQUESTED BOWEL CARE FOR TONIGHT; BROWN COW GIVEN. MOM TO BE GIVEN IF STILL NOT EFFECTIVE BY HS. PT HAS BEEN PLEASANT AND CO-OP THRU OUT THE DAY. NO IMPULSIVE EPISODES THIS SHIFT. REPORT GIVEN TO ONCOMING RN.
--- NOTE | 2022-02-19 03:24 | NUR ---
SHIFT SUMMARY NO OVERNIGHT EVENTS. PT ORINETED X3/4, KNOWS GENERAL IDEAS/CONCEPTS, MUCH IMPROVEMENT FROM LAST NIGHT. PT UNCOMFORTABLE MOST OF NIGHT, TOSSING AND TURNING, ADMINISTERED PRN TYLENOL PER APR. PT REPORTING "CONSTIPATION FOR 10 DAYS", ADMINISTERED MILK OF MAG THAT WAS NOT EFFECTIVE. PT REQUESTING SUPPOSITORY, RECIEVED NEW ORDER. SHARP CATHETER IN PLACE, DRAINING CLEAR YELLOW URINE. IV FLUIDS CONTINUE. CALL LIGHT IN REACH, ABLE TO MAKE NEEDS KNOWN.
[2022-02-19 05:07] LABS: Hematocrit 40.8 % (33.0-51.0); Hemoglobin 13.4 g/dL (11.5-16.0); Mean Corpuscular HGB 25.6 pg (26.0-34.0); Mean Corpuscular HGB Conc 32.8 g/dL (31.5-36.5); Mean Corpuscular Volume 78 fL (80-100); Mean Platelet Volume 8.9 fL (9.1-12.4); Platelet Count 285 K/mm3 (150-400); RDW Coefficient Variation 17.4 % (11.7-14.2); RDW Standard Deviation 48.8 fL (35.1-46.3); Red Blood Cell Count 5.23 M/mm3 (3.80-5.20)
[2022-02-19 05:24] LABS: Albumin, Blood 2.9 g/dL (3.4-5.0); Albumin/Globulin Ratio 0.6 (0.8-1.8); Bilirubin, Total 0.4 mg/dL (0.1-1.0); Bun/Creatinine Ratio 12.3 (12.0-20.0); Calcium, Blood 9.4 mg/dL (8.5-10.1); Creatinine, Blood 1.14 mg/dL (0.40-1.00); Globulin, Blood 4.7 g/dL (2.2-4.0); Potassium, Blood 3.9 mmol/L (3.5-5.5); Total Protein, Blood 7.6 g/dL (6.4-8.2)
--- NOTE | 2022-02-19 17:48 | NUR ---
SHIFT SUMMARY- PT A@O X3. PT HAD BM AROUND NOON, HARD AND SOFT STOOL MEDIUM. C/O PAIN, TREATED PER EMAR. VSS. PT MOOD EMOTIONAL BUT THOUGHT PROCESS IS CONCRETE. SHARP DRAINING CLEAR YELLOW FLUID, SEE OUTPUT. WILL CONTINUE TO MONITOR. CALL LIGHT IN REACH, SIDE RAILS UP.
--- NOTE | 2022-02-20 03:43 | NUR ---
SHIFT SUMMARY NO OVERNIGHT EVENTS. PT REMAINS ORIENTED X4, NO CONFUSION. PT EXPRESSING SHOCK AND CONCERN FOR HER DIAGNOSIS, DIDNT SLEEP VERY WELL. RECIEVING TYLENOL FOR PAIN, PT HAD BIG PAIN SPELL ON R HIP, ICE APPLIED ADMINISTERED PAIN MEDICATION. PT NOT WANTING TO PAGE MD FOR ANYTHING STRONGER. SHARP CATHETER IN PLACE, DRAINING WELL. CALL LIGHT IN REACH, ABLE TO MAKE NEEDS KNOWN .
[2022-02-20 05:34] LABS: Hematocrit 40.2 % (33.0-51.0); Hemoglobin 13.2 g/dL (11.5-16.0); Mean Corpuscular HGB 25.6 pg (26.0-34.0); Mean Corpuscular HGB Conc 32.8 g/dL (31.5-36.5); Mean Corpuscular Volume 78 fL (80-100); Platelet Count 309 K/mm3 (150-400); RDW Coefficient Variation 17.2 % (11.7-14.2); RDW Standard Deviation 48.1 fL (35.1-46.3); Red Blood Cell Count 5.16 M/mm3 (3.80-5.20); White Blood Cell Count 10.24 K/mm3 (4.00-11.30)
[2022-02-20 06:14] LABS: Albumin, Blood 2.9 g/dL (3.4-5.0); Albumin/Globulin Ratio 0.6 (0.8-1.8); Bilirubin, Total 0.2 mg/dL (0.1-1.0); Bun/Creatinine Ratio 15.2 (12.0-20.0); Calcium, Blood 9.1 mg/dL (8.5-10.1); Creatinine, Blood 0.99 mg/dL (0.40-1.00); Globulin, Blood 4.9 g/dL (2.2-4.0); Potassium, Blood 3.3 mmol/L (3.5-5.5); Total Protein, Blood 7.8 g/dL (6.4-8.2)
[2022-02-20 13:07] LABS: HBSAG SCREEN Negative (Negative); HCV AB >11.0 (0.0-0.9); HCV LOG10 5.702 (.); HEP A AB, IGM Negative (Negative); HEP B CORE AB, IGM Negative (Negative); HEP B CORE AB, TOT Positive (Negative); HEPATITIS C QUANTITATION 504000 IU/mL (.)
--- NOTE | 2022-02-20 17:54 | NUR ---
PATIENT IS ALERT AND ORIENTED AND COOPERATIVE WITH CARE. PATIENT IS VERY PAINFUL WHEN SITTING. PAIN MEDICATIONS PER EMAR. PATIENT IS EAGER TO GO HOME TOMORROW. SHE WALKED IN TO THE [facility] WITH PT TODAY. SHE IS SITTING UP IN THE CHAIR NOW FOR DINNER. BLADDER TRAINING TODAY. PLAN IS TO DC HOME TOMORROW AND FOLLOW UP WITH DR. OSMAN. WILL CONTINUE TO MONITOR
--- NOTE | 2022-02-21 03:55 | NUR ---
SHIFT SUMMARY NO OVERNIGHT EVENTS. PT UP TO BEDSIDE COMMODE X2. NO ISSUES URINATING AFTER SHARP REMOVAL. PT VERY PAINFUL WHEN SITTING, STATES LYING FLAT AND STANDING IS OKAY. ADMINISTERED PRN TYLENOL FOR PAIN. PT STATES READY TO DISCHARGE TODAY BUT WORRIED ABOUT PAIN CONTROL AT HOME. CALL LIGHT IN REACH, ABLE TO MAKE NEEDS KNOWN.
[2022-02-21 05:02] LABS: Hematocrit 42.5 % (33.0-51.0); Hemoglobin 13.7 g/dL (11.5-16.0); Mean Corpuscular HGB 25.7 pg (26.0-34.0); Mean Corpuscular HGB Conc 32.2 g/dL (31.5-36.5); Mean Corpuscular Volume 80 fL (80-100); Mean Platelet Volume 9.2 fL (9.1-12.4); Platelet Count 299 K/mm3 (150-400); RDW Coefficient Variation 17.7 % (11.7-14.2); RDW Standard Deviation 50.5 fL (35.1-46.3); Red Blood Cell Count 5.33 M/mm3 (3.80-5.20); White Blood Cell Count 10.17 K/mm3 (4.00-11.30)
[2022-02-21 05:26] LABS: Bun/Creatinine Ratio 17.6 (12.0-20.0); Creatinine, Blood 1.08 mg/dL (0.40-1.00); Potassium, Blood 3.5 mmol/L (3.5-5.5)
[2022-02-21] MEDS ORDERED: BENADRYL25 MG PO (11:50)
[2022-02-21] MEDS ORDERED: AMLO5 PO (11:50)
--- NOTE | 2022-02-21 15:44 | NUR ---
DC HOME WITH HH ORDERS RECEIVED FOR DC HOME WITH HH. TRANSPORT WILL BE BY [facility]IA [facility] WITH A DISPLAYER TIME OF 1600. PIV DC'D WITH CATH TIP INTACT, NO REDNESS OR SWELLING NOTED. WRITTEN & VERBAL DC INSTRUCTIONS GIVEN TO PT WITH GOOD UNDERSTANDING VERBALIZED BY PT. NEW MED SCRIPTS WERE FAXED TO [facility] PER PT REQUEST.
--- NOTE | 2022-02-21 16:50 | NUR ---
[facility] TRANSPORT HERE WITH YANELIS AT 1600.
== END 2022-02-21 16:00 | disposition home health service (06) ==
LOC: ER 01:20 → MEDS 01:21
PROVIDERS: Emergency Medicine; Internal Medicine; ADMIT Internal Medicine
DX: N17.9 Acute kidney failure, unspecified (principal); I10 Essential (primary) hypertension; J45.909 Unspecified asthma, uncomplicated; G92.8 Other toxic encephalopathy; E87.1 Hypo-osmolality and hyponatremia; N39.0 Urinary tract infection, site not specified; R22.2 Localized swelling, mass and lump, trunk; R47.01 Aphasia; B96.20 Unspecified Escherichia coli [E. coli] as the cause of diseases classified elsewhere; R16.0 Hepatomegaly, not elsewhere classified; C34.11 Malignant neoplasm of upper lobe, right bronchus or lung; Z87.891 Personal history of nicotine dependence; Z86.19 Personal history of other infectious and parasitic diseases; Z79.899 Other long term (current) drug therapy
CPT/HCPCS: 20225; 36415; 51702; 51798; 70551; 71250; 74176; 77012; 80048; 80053; 81001; 82105; 82378; 83735; 84443; 85025; 85027; 85610; 85651; 86140; 86301; 86304; 86704; 86708; 86803; 87086; 87340; 88305; 88341; 88342; 93005; 93010; 94640; 94664; 94760; 96361; 96365-59; 96367; 96372; 96375; 96375-59; 96376; 97110-CQ; 97116; 97161; 97166; 97530; 97530-CQ; 97535; 99285-25; A9270; G0378; J0696; J1644; J1650; J2405; J2930; J3475; J7030

== ENCOUNTER 2022-06-23 14:06 | Emergency (ER) | payer MEDICARE ==
[~2022-06-23] VITALS: Ht 157.5 cm; Wt 81.7 kg
[~2022-06-23 14:06] MED LIST changes: +AMLO5 PO; +AZIT500 PO; +BENADRYL25 MG PO; +HYDMOR4 PO
[2022-06-23 14:12] VITALS: BP 119/93
[2022-06-23 14:31] LABS: BASOPHILS PERCENT AUTO 0 % (0-2); EOSINOPHILS ABSOLUTE AUTO 0.06 K/mm3 (0.00-0.68); EOSINOPHILS PERCENT AUTO 1 % (0-6); Hematocrit 39.3 % (33.0-51.0); Hemoglobin 12.7 g/dL (11.5-16.0); IMMATURE GRAN ABSOLUTE AUTO 0.04 K/mm3 (0.00-0.10); IMMATURE GRAN PERCENT AUTO 0 % (0-1); LYMPHOCYTES ABSOLUTE AUTO 0.41 K/mm3 (0.84-5.20); LYMPHOCYTES PERCENT AUTO 4 % (21-46); MONOCYTES ABSOLUTE AUTO 0.06 K/mm3 (0.16-1.47); MONOCYTES PERCENT AUTO 1 % (4-13); Mean Corpuscular HGB 28.6 pg (26.0-34.0); Mean Corpuscular HGB Conc 32.3 g/dL (31.5-36.5); Mean Corpuscular Volume 89 fL (80-100); Mean Platelet Volume 8.6 fL (9.1-12.4); NEUTROPHILS ABSOLUTE AUTO 9.88 K/mm3 (1.96-9.15); NEUTROPHILS PERCENT AUTO 95 % (41-73); Platelet Count 251 K/mm3 (150-400); RDW Coefficient Variation 14.8 % (11.7-14.2); RDW Standard Deviation 48.2 fL (35.1-46.3); Red Blood Cell Count 4.44 M/mm3 (3.80-5.20); White Blood Cell Count 10.45 K/mm3 (4.00-11.30)
[2022-06-23 15:01] LABS: Albumin, Blood 2.8 g/dL (3.4-5.0); Albumin/Globulin Ratio 0.7 (0.8-1.8); Bilirubin, Total 0.4 mg/dL (0.1-1.0); Bun/Creatinine Ratio 38.1 (12.0-20.0); Calcium, Blood 8.4 mg/dL (8.5-10.1); Creatinine, Blood 0.63 mg/dL (0.40-1.00); Globulin, Blood 4.1 g/dL (2.2-4.0); Potassium, Blood 5.1 mmol/L (3.5-5.5); Total Protein, Blood 6.9 g/dL (6.4-8.2)
== END 2022-06-23 18:17 | disposition left against medical advice (07) ==
LOC: ER 14:06
PROVIDERS: Physician Assistant
DX: J02.9 Acute pharyngitis, unspecified (principal); Z79.899 Other long term (current) drug therapy; Z53.21 Procedure and treatment not carried out due to patient leaving prior to being seen by health care provider
CPT/HCPCS: 71046; 80053; 85025; 99282-25

== ENCOUNTER 2022-09-13 10:47 | Emergency (ER) | payer MEDICARE ==
[~2022-09-13] VITALS: Ht 157.5 cm; Wt 70.3 kg
[2022-09-13] MEDS ORDERED: FLUT1DIS5 (12:06)
[2022-09-13] MEDS ORDERED: DECADRON4 M1 (12:07)
[2022-09-13] MEDS ORDERED: ALPR.25 (12:07)
[2022-09-13] MEDS ORDERED: Calcium Carbon500 MG (12:07)
[2022-09-13] MEDS ORDERED: FOLI1 PO (12:07)
[2022-09-13] MEDS ORDERED: COGNIQUIL CAPS1 EACH PO (12:08)
[2022-09-13 14:22] LABS: BASOPHILS ABSOLUTE AUTO 0.02 K/mm3 (0.00-0.23); BASOPHILS PERCENT AUTO 0 % (0-2); EOSINOPHILS PERCENT AUTO 0 % (0-6); Hematocrit 33.1 % (33.0-51.0); Hemoglobin 11.1 g/dL (11.5-16.0); IMMATURE GRAN ABSOLUTE AUTO 0.35 K/mm3 (0.00-0.10); IMMATURE GRAN PERCENT AUTO 5 % (0-1); LYMPHOCYTES ABSOLUTE AUTO 0.51 K/mm3 (0.84-5.20); LYMPHOCYTES PERCENT AUTO 7 % (21-46); MONOCYTES ABSOLUTE AUTO 0.61 K/mm3 (0.16-1.47); MONOCYTES PERCENT AUTO 9 % (4-13); Mean Corpuscular HGB 31.2 pg (26.0-34.0); Mean Corpuscular HGB Conc 33.5 g/dL (31.5-36.5); Mean Corpuscular Volume 93 fL (80-100); Mean Platelet Volume 9.4 fL (9.1-12.4); NEUTROPHILS ABSOLUTE AUTO 5.46 K/mm3 (1.96-9.15); NEUTROPHILS PERCENT AUTO 79 % (41-73); NRBC ABSOLUTE 0.04 K/mm3 (0.00-0.02); NRBC Auto 0.6 /100 WBC (0.0-0.2); Platelet Count 167 K/mm3 (150-400); RDW Coefficient Variation 21.5 % (11.7-14.2); Red Blood Cell Count 3.56 M/mm3 (3.80-5.20); White Blood Cell Count 6.95 K/mm3 (4.00-11.30)
[2022-09-13 14:40] LABS: Albumin, Blood 2.8 g/dL (3.4-5.0); Albumin/Globulin Ratio 0.7 (0.8-1.8); Bilirubin, Total 0.3 mg/dL (0.1-1.0); Bun/Creatinine Ratio 45.3 (12.0-20.0); Calcium, Blood 8.9 mg/dL (8.5-10.1); Creatinine, Blood 0.68 mg/dL (0.40-1.00); Globulin, Blood 3.9 g/dL (2.2-4.0); Potassium, Blood 4.7 mmol/L (3.5-5.5); Total Protein, Blood 6.7 g/dL (6.4-8.2)
[2022-09-13 16:15] LABS: Glucose, Blood 673 mg/dL (70-99)
[2022-09-13 17:30] VITALS: BP 131/73
== END 2022-09-13 17:35 | disposition home or self-care (01) ==
LOC: ER 10:47
PROVIDERS: Family Medicine
DX: R06.00 Dyspnea, unspecified (principal); E11.65 Type 2 diabetes mellitus with hyperglycemia; Z79.899 Other long term (current) drug therapy; Z79.84 Long term (current) use of oral hypoglycemic drugs; F17.210 Nicotine dependence, cigarettes, uncomplicated; I10 Essential (primary) hypertension
CPT/HCPCS: 71046; 71260; 80053; 82947; 83880; 85025; 93005; 93010; 99284-25; J1815; Q9967

== ENCOUNTER 2022-10-25 12:50 | Inpatient (IN) | payer MEDICARE ==
[2022-10-25] VITALS (15 sets, daily range): BP systolic 77–115; BP diastolic 50–95
[~2022-10-25] VITALS: Ht 162.6 cm; Wt 72.8 kg
[~2022-10-25 12:50] MED LIST changes: +ALPR.25; +COGNIQUIL CAPS1 EACH PO; +Calcium Carbon500 MG; +DECADRON4 M1; +FLUT1DIS5; +FOLI1 PO
[2022-10-25 13:56] LABS: Hematocrit 20.8 % (33.0-51.0); Hemoglobin 6.8 g/dL (11.5-16.0); Mean Corpuscular HGB 34.2 pg (26.0-34.0); Mean Corpuscular HGB Conc 32.7 g/dL (31.5-36.5); Mean Corpuscular Volume 105 fL (80-100); Mean Platelet Volume 11.3 fL (9.1-12.4); NRBC ABSOLUTE 0.05 K/mm3 (0.00-0.02); NRBC Auto 0.8 /100 WBC (0.0-0.2); Platelet Count 61 K/mm3 (150-400); RDW Coefficient Variation 17.8 % (11.7-14.2); RDW Standard Deviation 68.4 fL (35.1-46.3); Red Blood Cell Count 1.99 M/mm3 (3.80-5.20)
[2022-10-25 14:13] LABS: Albumin, Blood 2.3 g/dL (3.4-5.0); Albumin/Globulin Ratio 0.5 (0.8-1.8); Bilirubin, Total 0.5 mg/dL (0.1-1.0); Bun/Creatinine Ratio 33.6 (12.0-20.0); Calcium, Blood 8.4 mg/dL (8.5-10.1); Creatinine, Blood 0.75 mg/dL (0.40-1.00); Globulin, Blood 4.4 g/dL (2.2-4.0); Potassium, Blood 4.3 mmol/L (3.5-5.5); Total Protein, Blood 6.7 g/dL (6.4-8.2)
[2022-10-25 14:57] LABS: Source, Urine Clean Catch
[2022-10-25 15:03] LABS: BAND PERCENT MAN 16 % (0-8); BASOPHILS PERCENT MAN 0 % (0-2); EOSINOPHILS PERCENT MAN 0 % (0-6); LYMPHOCYTES ABSOLUTE MAN 1.32 K/mm3 (0.84-5.20); LYMPHOCYTES PERCENT MAN 22 % (21-46); MONOCYTES PERCENT MAN 5 % (4-13); NEUTROPHILS ABSOLUTE MAN 4.38 K/mm3 (1.96-9.15); SEG NEUTROPHILS PERCENT MAN 57 % (41-73); TOTAL CELLS COUNTED 100
[2022-10-25 15:16] LABS: Appearance, Urine Clear (Clear); Bilirubin, Urine Neg (Neg); Blood, Urine Neg (Neg); Color, Urine Yellow (P-Yellow); Glucose Qualitative, Urine 1+ (Neg); Ketones, Urine Neg (Neg); Leukocyte Esterase, Urine Neg (Neg); Nitrite, Urine Neg (Neg); Protein, Urine 1+ (Neg); Specific Gravity, Urine 1.015 (1.003-1.022); Urobilinogen, Urine 1+ (Normal)
--- NOTE | 2022-10-25 16:41 | NUR ---
Received a call from a woman named Violet, who requested I give a message to my colleague who had called her regarding this patient. She stated she is not the first contact anymore for this patient and asked that he call Isrrael or Concepción. I passed this information along to my colleague.
--- NOTE | 2022-10-25 16:47 | NUR ---
ED Palliative Care Consult Spoke with Dr Lala and discussed case. Pt to the ED after family found Pt down in her own feces. Pt has Stage 4 Lung Cancer with mets to the liver and bone. Due to Pt's current condition, she is not able to make her own decisions. Pt's brother left to get Pt's POLST from her home. Pt was on hospice services then revoked to pursue further cancer treatment. Dr Lala discussed with Dr Olguin who reports Pt's cancer is stable during last visit. Pt resting on gurney upon arrival. Pt is A&OX2. Pt unable to correctly verbalize place and reason for visit. Pt's sister in law Concepción at bedside. Offered supportive visit until brother Isrrael arrives. Isrrael provides Pt's POLST that was signed in May of this year. Pt's wishes on POLST are DNR and Limited Treatment. On back of POLST, Pt's sister Violet Berman is listed as emergency contact. Isrrael reports sister was decision maker at one point but has deferred decision making to Isrrael. Left message with Pt's sister Violet with request for a return phone call. PC RN Constanza speaks with Violet who reported no longer being the first contact and defers to Isrrael. Discussed potential options including treatment and hospice. Isrrael reports he would like to follow the POLST for now and is agreeable to revisit goals of care if needed. Isrrael reports living in [place] and comes up periodically to check on Pt. He reports at baseline Pt is independent and lives alone. Obtained copy of POLST and will deliver to medical records. Palliative Care will remain available for therapeutic visits.
[2022-10-25 18:57] LABS: International Normalized Ratio 1.09; Prothrombin Time Results 11.4 Sec (9.7-11.5)
[2022-10-25 19:01] LABS: Hematocrit 22.5 % (33.0-51.0); Hemoglobin 7.5 g/dL (11.5-16.0)
[2022-10-25 19:30] LABS: Base Excess Venous -2.1 mmol/L; Bicarbonate Venous 22.7 mmol/L (24.0-30.0); PCO2 Venous 46.5 mmHg (38-42); pH Blood Venous 7.32 (7.34-7.37)
[2022-10-25 20:59] LABS: Hematocrit 20.4 % (33.0-51.0); Hemoglobin 6.9 g/dL (11.5-16.0)
--- NOTE | 2022-10-25 21:30 | NUR ---
ASSUMPTION OF CARE RECEIVED REPORT FROM ER NURSE. PT ARRIVED TO UNIT AT 2123. PT UNABLE TO STATE NAME, MUMBLES WORDS. PT RESTLESS. HR 90'S SR, HYPOTENSIVE WITH SBP IN 80-90'S. PT ON 3LPM VIA NC TO MAINTAIN OXYGEN SATURATION > 95%. PIV TO LEFT AC. BRUISES NOTED, PICTURES IN CHART.
--- NOTE | 2022-10-25 22:03 | NUR ---
PHYSICIAN CALLED CALLED ROCIO REGARDING PT PUPILS, RIGHT PUPIL FIXED AT 5, LEFT PUPIL 2 RESPONSIVE TO LIGHT. ALSO INFORED HIM OF PT H&H, CURRENT BLOOD PRESSURE, AND FENTANYL PATCH IN PLACE TO RIGH CHEST. FENTANYL PATCH REMOVED AND WASTED WITH WITNESS, DAT MATOS. SEE ORDERS.
--- NOTE | 2022-10-25 23:11 | NUR ---
PHYSICIAN NOTIFY CALLED ROCIO PEÑA PATEINTS BLOOD PRESSURE. ORDERS RECEIVED.
[2022-10-26] VITALS (59 sets, daily range): BP systolic 85–132; BP diastolic 39–106
[2022-10-26 03:53] LABS: Hematocrit 24.7 % (33.0-51.0); Hemoglobin 8.5 g/dL (11.5-16.0); Mean Corpuscular HGB 33.5 pg (26.0-34.0); Mean Corpuscular HGB Conc 34.4 g/dL (31.5-36.5); Mean Platelet Volume 11.7 fL (9.1-12.4); NRBC ABSOLUTE 0.04 K/mm3 (0.00-0.02); NRBC Auto 0.6 /100 WBC (0.0-0.2); RDW Coefficient Variation 18.5 % (11.7-14.2); RDW Standard Deviation 64.6 fL (35.1-46.3); Red Blood Cell Count 2.54 M/mm3 (3.80-5.20); White Blood Cell Count 6.63 K/mm3 (4.00-11.30)
[2022-10-26 04:00] LABS: Mean Corpuscular Volume 97 fL (80-100); Platelet Count 50 K/mm3 (150-400)
[2022-10-26 04:12] LABS: BAND PERCENT MAN 3 % (0-8); BASOPHILS PERCENT MAN 0 % (0-2); EOSINOPHILS PERCENT MAN 0 % (0-6); LYMPHOCYTES ABSOLUTE MAN 0.39 K/mm3 (0.84-5.20); LYMPHOCYTES PERCENT MAN 6 % (21-46); MONOCYTES ABSOLUTE MAN 0.46 K/mm3 (0.16-1.47); MONOCYTES PERCENT MAN 7 % (4-13); NEUTROPHILS ABSOLUTE MAN 5.76 K/mm3 (1.96-9.15); SEG NEUTROPHILS PERCENT MAN 84 % (41-73); TOTAL CELLS COUNTED 100
[2022-10-26 04:43] LABS: Albumin/Globulin Ratio 0.5 (0.8-1.8); Bilirubin, Total 0.7 mg/dL (0.1-1.0); Bun/Creatinine Ratio 37.2 (12.0-20.0); Calcium, Blood 7.4 mg/dL (8.5-10.1); Creatinine, Blood 0.78 mg/dL (0.40-1.00); Globulin, Blood 3.9 g/dL (2.2-4.0); Magnesium, Blood 1.1 mg/dL (1.6-2.4); Potassium, Blood 4.7 mmol/L (3.5-5.5); Total Protein, Blood 5.9 g/dL (6.4-8.2)
[2022-10-26 05:09] LABS: Source, Urine Foley catheter
[2022-10-26 05:23] LABS: Appearance, Urine Clear (Clear); Bilirubin, Urine Neg (Neg); Blood, Urine Neg (Neg); Color, Urine Yellow (P-Yellow); Glucose Qualitative, Urine 1+ (Neg); Ketones, Urine 1+ (Neg); Leukocyte Esterase, Urine Neg (Neg); Nitrite, Urine Neg (Neg); Protein, Urine 1+ (Neg); Specific Gravity, Urine 1.015 (1.003-1.022); Urobilinogen, Urine 1+ (Normal)
--- NOTE | 2022-10-26 06:26 | NUR ---
SHIFT SUMMARY PT RESTING IN BED. PT UNABLE TO STATE NAME, ABLE TO STATE FEW WORDS. HR 80'S SR, BP INITIALLY HYPOTENSVIE, SBP NOW 100'S WITH MAP OF 73. 3 LPM VIA NC TO MAINTAIN OXYGEN SATURATION >95%. PT HAD ONE EPISODE OF PAIN, MEDICATED PER EMAR. POWERGLIDE TO CORY, PIV TO LAC. SHARP IN PLACE, PATENT DRAINING TO GRAVITY. PT RECEIVED 1 UNIT PRBC DURING THIS SHIFT.
--- NOTE | 2022-10-26 08:30 | NUR ---
ASSUMED CARE REPORT FROM JANICE MATOS AT 0700. PT RESTING IN BED. RESTLESS, MOANING. PT ORIENTED TO SELF ONLY. DOES NOT KNOW BIRTHDAY. FOLLOWS SIMPLE DIRECTIONS. DIFFICULT TO OBTAIN NEEDS. ATTEMPTED MULTIPLE REPOSITIONS AND PAIN MEDS FOR COMFORT c MINIMAL RELIEF. LUNGS c CRACKLES THROUGHOUT AND OCCASIONAL WHEEZE. O2 SATS >94% ON RA. SR/ST ON MONITOR, RATE 80-100'S. BP STABLE. MULTIPLE BRUISES THROUGHOUT BODY. SHARP ON PLACE FOR URINARY RETENTION, CLEAR YELLOW URINE OUT. POWERGLIDE TO RUE c IVF INFUSING AT 100 ML/HR. WILL CONTINUE TO MONITOR.
[2022-10-26 09:20] LABS: Hematocrit 25.5 % (33.0-51.0); Hemoglobin 8.6 g/dL (11.5-16.0)
--- NOTE | 2022-10-26 10:37 | NUR ---
Spiritual Care Pt. request Pt. is awake in bed and after this calender let off operator introduced myself, Pt. welcomed my visit. Pt. displays evidence of discomfort, but is able to answer some of my questions. Pt. displays evidence of greater calm as long as this calender let off operator is present. Pt. closes eyes as this calender let off operator prayed for her. Will remain available to both the Pt. and the staff who are caring for this Pt.
[2022-10-26 15:18] LABS: Hematocrit 24.7 % (33.0-51.0); Hemoglobin 8.5 g/dL (11.5-16.0)
--- NOTE | 2022-10-26 15:34 | NUR ---
Supportive visit this afternoon. Pt resting in bed with Primary RN Lilo and Pt's friend/Caregiver Savanah at bedside. Pt's mentation appears improved today. Pt squirming in bed constantly with upper body jerking. Pt reports being undecided if she is experiencing pain. Savanah reports Pt takes .25 mg xanax for anxiety. She also will take Ativan and dilaudid together to assist with pain and anxiety. Pt start discussing her plan to continue chemo therapy and is scheduled for another treatment tomorrow. Cotinued therapeutic listening. Spoke with Dr Chakraborty and discussed case. Reviewed plan of care and requested Pt being started back on her home regimen of xanax. Dr Chakraborty will consider request. Palliative Care will remain available
--- NOTE | 2022-10-26 18:51 | NUR ---
SHIFT SUMMARY PT MENTATION IMPROVED THIS SHIFT. MORE ALERT, KNOWS NAME, FAMILY AND THAT SHE IS IN THE HOSPITAL. STILL HAS CONFUSED CONVERSATIONS BUT ANSWERS SOME QUESTIONS APPROPRIATELY. PT RESTLESS AND AGITATED MOST OF SHIFT. ATIVAN, DILAUDID AND FENT PATCH ORDERED THIS SHIFT c MINIMAL RELIEF. PT APPEARS TO REST FOR SHORT PERIOD OF TIME THEN RETURNS TO BEING RESTLESS. WHEN ASKED HOW WE CAN HELP PT STATES "I DONT KNOW.". LUNGS COARSE c OCCASIONAL WHEEZE. SR, RATE 80-100'S. BP STABLE. MULTIPLE AREAS OF BRUISING AND SKIN TEARS, SEE SKIN ASSESSMENT. SHARP PATENT, DRAINING CLEAR YELLOW URINE TO GRAVITY. WILL CONTINUE TO MONITOR UNTIL REPORT TO ONCOMING NURSE.
--- NOTE | 2022-10-26 21:00 | NUR ---
ASSUMPTION OF CARE REPORT RECEIVED FROM DAY SHIFT RN. PT RESTING IN BED, DENIES PAIN HOWEVER PT MOANING AND MOVING ABOUT IN BED. ABLE TO STATE NAME AND , ANSWERS SOME QUESTIONS APPROPRIATELY. HR 100-120 SINUS TACH, SBP 117 WITH MAP OF 81. PT ON RA, OXYGEN SATURATION >90%. REPOSITIONED PT AT TIME OF ASSESSMENT. POWERGLIDE TO CORY, PIV TO RIGHT WRIST, NS INFUSING AT 100MLS/HR. SHARP PATENT DRAINING TO GRAVITY.
[2022-10-26 21:07] LABS: Hematocrit 21.7 % (33.0-51.0); Hemoglobin 7.5 g/dL (11.5-16.0)
--- NOTE | 2022-10-26 21:54 | NUR ---
HOSPITIALIST NOTIFICATION SPOKE WITH ROCIO PEÑA PT H&H. NO NEW ORDERS.
[2022-10-27] VITALS (22 sets, daily range): BP systolic 100–153; BP diastolic 69–91
--- NOTE | 2022-10-27 00:19 | NUR ---
MD NOTIFICATION CALLED DR. ISAIAH SAMANOING PT ITCHING IN THE PERITONEAL AREA, ORDERS RECEIVED. ALSO RECEIVED ORDERS FOR AM LABS.
--- NOTE | 2022-10-27 01:04 | NUR ---
pt very restless in bed. moaning and yelling out. when asked if pt is in pain, states,"no why" then goes bnack to moaning and yelling out. med with dilaudid.
[2022-10-27 03:43] LABS: Hematocrit 21.6 % (33.0-51.0); Hemoglobin 7.6 g/dL (11.5-16.0); Mean Corpuscular HGB 33.8 pg (26.0-34.0); Mean Corpuscular HGB Conc 35.2 g/dL (31.5-36.5); Mean Corpuscular Volume 96 fL (80-100); Mean Platelet Volume 11.3 fL (9.1-12.4); NRBC ABSOLUTE 0.03 K/mm3 (0.00-0.02); NRBC Auto 0.5 /100 WBC (0.0-0.2); Platelet Count 73 K/mm3 (150-400); RDW Coefficient Variation 19.2 % (11.7-14.2); RDW Standard Deviation 67.1 fL (35.1-46.3); Red Blood Cell Count 2.25 M/mm3 (3.80-5.20); White Blood Cell Count 6.44 K/mm3 (4.00-11.30)
[2022-10-27 03:58] LABS: Albumin, Blood 2.2 g/dL (3.4-5.0); Albumin/Globulin Ratio 0.6 (0.8-1.8); Bilirubin, Total 0.4 mg/dL (0.1-1.0); Bun/Creatinine Ratio 29.4 (12.0-20.0); Calcium, Blood 7.5 mg/dL (8.5-10.1); Creatinine, Blood 0.68 mg/dL (0.40-1.00); Globulin, Blood 3.6 g/dL (2.2-4.0); Potassium, Blood 3.3 mmol/L (3.5-5.5); Total Protein, Blood 5.8 g/dL (6.4-8.2)
[2022-10-27 04:02] LABS: BAND PERCENT MAN 5 % (0-8); BASOPHILS PERCENT MAN 0 % (0-2); EOSINOPHILS PERCENT MAN 0 % (0-6); LYMPHOCYTES ABSOLUTE MAN 0.57 K/mm3 (0.84-5.20); LYMPHOCYTES PERCENT MAN 9 % (21-46); METAMYELOCYTE ABSOLUTE MAN 0.06 K/mm3 (0.00-0.00); METAMYELOCYTE PERCENT MAN 1 % (0-0); MONOCYTES ABSOLUTE MAN 0.32 K/mm3 (0.16-1.47); MONOCYTES PERCENT MAN 5 % (4-13); MYELOCYTE ABSOLUTE MAN 0.19 K/mm3 (0.00-0.00); MYELOCYTE PERCENT MAN 3 % (0-0); NEUTROPHILS ABSOLUTE MAN 5.28 K/mm3 (1.96-9.15); SEG NEUTROPHILS PERCENT MAN 77 % (41-73); TOTAL CELLS COUNTED 100
--- NOTE | 2022-10-27 05:56 | NUR ---
SHIFT SUMMARY PT RESTING IN BED. PT DENIES PAIN HOWEVER SHE CONTINUES TO MOAN AND MOVE AROUND IN BED, MEDICATED PER EMAR. PT ABLE TO STATE NAME AND . PT CONFUSED AND UNSURE WHY SHE IS IN THE HOSPITAL. HR 100'S SR, BP WNL. OXYGEN SATURATION >90% ON RA. POWERGLIDE TO CORY INFUSING NS AT 100MLS/HR, PIV TO RIGHT WRIST. SHARP PATENT DRAINING TO GRAVITY. PT CONTINUES TO GRAB AND SCRATCH AT HER THIEN AREA. MEDICATED WITH BENADRYL WITHOUT ANY SIGNIFICANT CHANGES. PT REPOSITIONS SELF IN BED.
--- NOTE | 2022-10-27 07:00 | NUR ---
ASSUME CARE: I have assumed care of this patient.
[2022-10-27 09:46] LABS: Magnesium, Blood 1.9 mg/dL (1.6-2.4); Phosphorus, Blood 1.3 mg/dL (2.5-4.9)
--- NOTE | 2022-10-27 13:17 | NUR ---
Supportive visit this afternoon. Pt in bed moaning in pain and anxious. Pt's brother Isrrael and sister in law Cnocepción at bedside. Reviewed plan of care and answered questions. Engaged in brief gentle advanced care planning. Discussed the importance of planning for the future including the potential need to re consider hospice. Primary RN Ada at bedside offering Ativan. Palliative Care will remain availale
--- NOTE | 2022-10-27 13:51 | NUR ---
TRANSFER: Report given to PRACTICE NURSE. Pt to be taken to PCU by SHIPPING SUPERVISOR via hospital bed.
--- NOTE | 2022-10-27 13:55 | NUR ---
FAMILY UPDATE: Pt's brother notified of transfer to PCU room 9
--- NOTE | 2022-10-27 15:07 | NUR ---
CARE NOTE PT IS ALERT TO SELF ONLY. VSS. SHE APPEARS RESTLESS AND CONFUSED. SHE REPORTED BEING IN PAIN ALL OVER DESPITE DOSE OF ORDERED DILAUDED GIVEN BY SOLAR APPLICATIONS DEVELOPMENT ENGINEER. PT REPOSITIONED FOR COMFORT. AUDIBLE WHEEZING NOTED, RESPIRATORY THERAPIST CONTACTED FOR BREATHING TREATMENT. THIS RN AND SPEECH THERAPIST TIAGO SHAHID DISCUSSED EVALUATION FOR TOMORROW 10/28 DUE TO CONFUSION, NS INFUSING PER EMAR ORDERS. BED ALARM ON.
--- NOTE | 2022-10-27 19:03 | NUR ---
SHIFT SUMMARY PT ALERT TO SELF ONLY. THIS NURSE ASSUMED CARE AFTER ICU TX AT APPROX. 1430. VSS. PT HAS BEEN RESTLESS AND MOANING OUT WELL STATING "I WANT TO GO HOME." SHE HAS ALSO APPEARED TO HALLUCINATE. SHARP CATHETER IN PLACE. PG INFUSING PER EMAR ORDERS. PT HAS ALSO REPORTED GENERALIZED PAIN, PLEASE SEE EMAR FOR PAIN MANAGEMENT. PT'S BROTHER IS CURRENTLY AT BEDSIDE. BED ALARM ON, CALL LIGHT W/IN REACH.
--- NOTE | 2022-10-28 00:03 | NUR ---
RECEIVED REPORT FROM DAY RN, PT ALERT AND ORIENTED ONLY TO SELF, MOANS AND GROANS, MEDICATING PRN PAIN MEDS PT VERBALIZED HER SHOULDER WAS HURTING, ALSO WAS PULLING ON SHARP CATH, ATIVAN WAS GIVEN WELL. VITALS HAS BEEN STABLE, PT HAS BEEN ON ROOMAIR. REPOSITIONED FOR COMFORT, REPORT GIVEN TO [place] MATOS.
[2022-10-28 03:29] VITALS: BP 126/92
--- NOTE | 2022-10-28 04:52 | NUR ---
SHIFT SUMMARY: PT ALERT AND ORIENTED TO SELF ONLY. BP STABLE, HR ST 100'S, AFEBRILE, SATS >97% ON 2L NC. PT MEDICATED PER EMAR FOR SHOULDER PAIN. SHARP CATH IN PLACE, PATENT AND DRAINING GAY URINE TO GRAVITY, APPROX 800ML OF OUTPUT THIS SHIFT. NO BM. POWERGLIDE PLACED IN CORY, DRAWS AND FLUSHES. PT REMAINS NPO. BED IN LOW, CALL LIGHT IN REACH, WILL REPORT TO ONCOMING RN.
[2022-10-28 04:53] LABS: Magnesium, Blood 1.6 mg/dL (1.6-2.4); Percent Saturation 27.8 % (15.0-50.0)
[2022-10-28 04:54] LABS: Bun/Creatinine Ratio 15.8 (12.0-20.0); Calcium, Blood 7.3 mg/dL (8.5-10.1); Creatinine, Blood 0.57 mg/dL (0.40-1.00); Phosphorus, Blood 2.2 mg/dL (2.5-4.9); Potassium, Blood 3.6 mmol/L (3.5-5.5)
[2022-10-28 08:13] VITALS: BP 144/96
--- NOTE | 2022-10-28 08:24 | NUR ---
Spiritual Care Visit, Pt. is awake and through mustly non verbal nods and smiles, welcomed my visit. Pt. dislpays evidence of discomfort, but has difficulty forming words. With nods, the Pt. seemed to communicate that she has had no family visit, but she welcomed prayer. Prayed with Pt. Will remain available to Pt. and staff.
[2022-10-28 11:49] VITALS: BP 156/92
--- NOTE | 2022-10-28 16:02 | NUR ---
Spoke with Primary RN Rachelle and discussed case. Pt requiring significant pain medication. Pt remains confused. Family may benefit from goals of care conversation to consider comfort care and hospice. Pt just received pain medication. Pt resting in bed with her eyes closed. Pt left undisturbed, no S/S of distress at this time. Called and spoke with Pt's brother Isrrael. Provided update and discussed considering comfort care and hospice. Discussed buttermaker continuous churn prognosis and brother agrees goals will be to move forward with comfort care and would like hospice referral sent to [facility]. Isrrael does request continuing IV antibiotics until D/C home with hospice. Spoke with Dr Chakraborty and discussed case. Placed comfort care order, comfort care order set, D/C maintenance medications, Continue IV antibiotics per V/O from Dr Chakraborty. IV antibiotics to optimize Pt until D/C. Spoke with Shannan from [facility] who is agreeable to send referral to [facility]. Palliative Care will remain available for symptom management and supportive visits.
--- NOTE | 2022-10-28 16:48 | NUR ---
1645 RECEIVED REPORT FROM U 9 RN.
--- NOTE | 2022-10-28 17:51 | NUR ---
SUMMARY- PT IS REQUIRING 20MG ROXANOL Q1 HR AND 2MG OF ATIVAN FOR SEVERE PAIN AND ANXIETY RELIEF. PT IS BEDREST. X2 PERSON ASSIST. PT IS [id number].
--- NOTE | 2022-10-29 01:52 | NUR ---
SHIFT SUMMERY, PT MOANING A LITTLE AT START OF SHIFT PT HAD BEEN VERY UNCOMFORTABLE DURING DAY BU NOW DOING BETER. PT FAMILY AT BED SIDE. PT REPOSITIONED SEVERAL TIMES DURING NIGHT AND MEDICATED WITH ORAGL MS , PT ALSO GIVEN ATROPINE GTT FOR ORAL SECREATIONS.. PT APPEARS TO BE COMFORTABLE AT THIS TIME. CORSE LUNG SOUNDS. CALL LIGHT IN REACH .
[2022-10-29] MEDS ORDERED: MORP20L SL (12:38)
[2022-10-29] MEDS ORDERED: ATROPINE SULFATE2 M1 SL (12:39)
[2022-10-29] MEDS ORDERED: TRANSDERM-SCOP1 EA13 TD (12:40)
[2022-10-29] MEDS ORDERED: DURAGESIC1 EAC1 TOP (12:41)
[2022-10-29] MEDS ORDERED: LORAZEPAM2 MG/1 M2 SL (12:42)
--- NOTE | 2022-10-29 16:17 | NUR ---
PT DISCHARGE HOME WITH HOSPICE. TRANSPORT PICKED UP AT 1500. HOSPICE TO ADMIT TODAY. WILL HAVE MED SCRIPTS FILLED AND AVAILABLE TO PT AT HOME.
== END 2022-10-29 17:41 | disposition hospice, home (50) | DRG 871 ==
LOC: ER 12:50 → ICUE 20:23 → PCU 10-27 14:09 → MEDS 10-28 16:59
PROVIDERS: Emergency Medicine; Internal Medicine; Nurse Practitioner Acute Care; ADMIT Internal Medicine
PROC: 0T9B70Z Drainage of Bladder with Drainage Device, Via Natural or Artificial Opening (ICD-10-PCS; principal; 2022-10-25)
PROC: 30233N1 Transfusion of Nonautologous Red Blood Cells into Peripheral Vein, Percutaneous Approach (ICD-10-PCS; 2022-10-25)
PROC: 3E03329 Introduction of Other Anti-infective into Peripheral Vein, Percutaneous Approach (ICD-10-PCS; 2022-10-25)
PROC: 3E033XZ Introduction of Vasopressor into Peripheral Vein, Percutaneous Approach (ICD-10-PCS; 2022-10-25)
DX: A41.9 Sepsis, unspecified organism (principal); G92.8 Other toxic encephalopathy; J18.9 Pneumonia, unspecified organism; C34.90 Malignant neoplasm of unspecified part of unspecified bronchus or lung; C78.7 Secondary malignant neoplasm of liver and intrahepatic bile duct; C79.51 Secondary malignant neoplasm of bone; E87.0 Hyperosmolality and hypernatremia; Z51.5 Encounter for palliative care; Z66 Do not resuscitate; I95.9 Hypotension, unspecified; R65.20 Severe sepsis without septic shock; D69.59 Other secondary thrombocytopenia; E83.42 Hypomagnesemia; E83.39 Other disorders of phosphorus metabolism; E87.6 Hypokalemia; E83.51 Hypocalcemia; D63.8 Anemia in other chronic diseases classified elsewhere; I10 Essential (primary) hypertension; T45.1X5A Adverse effect of antineoplastic and immunosuppressive drugs, initial encounter; E86.0 Dehydration; B19.20 Unspecified viral hepatitis C without hepatic coma; J45.909 Unspecified asthma, uncomplicated; K21.9 Gastro-esophageal reflux disease without esophagitis; E11.9 Type 2 diabetes mellitus without complications; F17.210 Nicotine dependence, cigarettes, uncomplicated; Z79.84 Long term (current) use of oral hypoglycemic drugs; Z79.899 Other long term (current) drug therapy; Z79.891 Long term (current) use of opiate analgesic; Z98.51 Tubal ligation status; Z90.49 Acquired absence of other specified parts of digestive tract; Z87.81 Personal history of (healed) traumatic fracture; Z92.3 Personal history of irradiation; Z92.21 Personal history of antineoplastic chemotherapy
CPT/HCPCS: 36415; 36430; 51703; 70450; 71045; 80048; 80053; 82272; 82330; 82607; 82728; 82746; 82803; 82947; 83540; 83550; 83605; 83735; 83880; 84100; 84145; 84484; 85014; 85018; 85025; 85610; 86850; 86900; 86901; 86923; 87040; 92610; 93005; 93010; 94640; 94664; 94760; 94762; 96361-59; 96365-59; 96375-59; 99285-25; A9270; C1751; C9113; J0456; J0612; J0696; J1170; J1720; J2060; J2405; J2543; J3010; J3475; J3480; J3489; J7030; J7040; J7050; J7060; J7070; P9016